=== PATIENT | male | born 1985 | race Caucasian/White ===

== ENCOUNTER 2022-05-11 01:40 | Emergency (ER) | payer OTHER, SELFPAY ==
[2022-05-11 01:43] VITALS: BP 152/101; PULSE 65; RESP 18; TEMP 36.4; O2SAT 99; BMI 35.2
--- NOTE | 2022-05-11 02:11 | EKG12_ITS ---
Test Reason : Blood Pressure : / mmHG Vent. Rate : 065 BPM Atrial Rate : 065 BPM P-R Int : 172 ms QRS Dur : 108 ms QT Int : 410 ms P-R-T Axes : 052 055 048 degrees QTc Int : 426 ms Normal sinus rhythm Normal ECG Confirmed by KELLY WILSON, SAIMA ([id number]), sound editor CHRIS LEVIN ([id number]) on 05/14/2022 2:11:33 PM Referred By: Confirmed By:SAIMA MENDOZA MD
--- NOTE | 2022-05-11 02:12 | CT_ITS ---
INDICATION: abd pain -- IV PO Contrast EXAMINATION: CT ABDOMEN AND PELVIS WITH CONTRAST - CT Abdomen And Pelvis W/ Contrast Injection TECHNIQUE: Helically acquired images were obtained of the abdomen and pelvis following IV contrast. A radiation dose optimization technique was used for this scan. IV Contrast dosage and agent: 100 mL Isovue-370 Oral contrast: Gastrografin oral contrast. COMPARISON: None. FINDINGS: LOWER CHEST: Lung bases are clear. No cardiomegaly or pericardial effusion. LIVER: Homogeneous. No focal mass. GALLBLADDER AND BILIARY TREE: No calcified gallstones. No gallbladder distension or wall edema. No intra- or extrahepatic biliary ductal dilation. PANCREAS: No focal cystic or solid mass. SPLEEN: Normal size without focal cystic or solid mass. ADRENAL GLANDS: No nodules. KIDNEYS AND URETERS: Normal renal size and position. No hydronephrosis. PERITONEUM: No ascites or free air. No other fluid collection. BOWEL: Appendix is not seen. No right lower quadrant inflammation to suggest appendicitis. . No stomach or bowel distension. No focal inflammatory change. LYMPH NODES: No enlarged mesenteric or retroperitoneal lymph nodes. VESSELS: Aorta is non-dilated. URINARY BLADDER: Unremarkable. REPRODUCTIVE ORGANS: No pelvic masses. ABDOMINAL WALL: No discrete abdominal or pelvic wall hernia. BONES: No lytic or blastic abnormality. CT/Abdomen/Pelvis WITH Contrast IMPRESSION: Minimal bladder wall thickening versus pseudothickening from incomplete distention. Correlate with urine to exclude cystitis. No other acute finding. Electronically Signed: Ori Aparicio MD at 4:48 EDT ,
--- NOTE | 2022-05-11 02:13 | EX.ED.DYSGE1 ---
HPI History of Present Illness Chief Complaint: Abd Pain Detail of Chief Complaint: Chest and abdominal pain Informant: patient Onset/Context/Timing Onset: Weeks (1 week) Context: Gradual Onset Timing: Waxes and wanes Current Severity: Moderate Maximum Severity: Moderate Narrative Narrative: Patient presents with 1 week history of waxing and waning chest and upper abdominal pain. He points to the center of his chest as well as in the epigastrium and left upper quadrant. He states he has pain that is sharp and stabbing and worse when he tries to lie down flat. He does note that sometimes worsens after he eats. He does not necessarily feel short of breath. He has not had recent URI symptoms. He was seen by his primary care physician and had a chest x-ray that was reportedly unremarkable. He has tried ibuprofen without improvement. [facility] Medical History Hypertension Home Medications amlodipine 5 mg tablet 5 mg PO DAILY 05/11/22 [History Last Taken Unknown] Allergy/AdvReac Type Severity Reaction Status Date / Time No Known Allergies Allergy Verified 05/11/22 01:42 Surgical History History of tonsillectomy Hx of appendectomy Social History Smoking Status: Never smoker ROS ROS ED Constitutional Constitutional ED: Denies chills or fever(s) Eyes Eyes: Denies change in vision or discharge from eye(s) ENT ENT ED: Denies discharge from eye(s), rhinorrhea or sore throat Cardiovascular Cardiovascular: Reports chest pain; Denies palpitations Respiratory/Chest Respiratory/Chest: Denies cough or dyspnea Gastrointestinal Gastrointestinal: Reports abdominal pain; Denies diarrhea, nausea or vomiting Genitourinary Genitourinary ED: Denies dysuria Musculoskeletal Musculoskeletal: Denies back pain or extremity pain Integumentary Denies Abrasions or rash Neurologic Neurologic: Denies headache(s) or weakness Allergic/Immunologic Allergic/Immunologic ED: Denies lip swelling or urticaria EXAM Physical Exam Const Vital Signs: 05/11/22 01:43 05/11/22 03:51 Temperature 97.5 F L Temperature Source Temporal Pulse Rate 65 76 Respiratory Rate 18 18 Blood Pressure 152/101 H Blood Pressure Mean 118 Pulse Ox 99 Oxygen Delivery Method Room Air Positive well nourished and well developed General Appearance ED: well developed HEENT Reports normocephalic and head/scalp atraumatic Eyes PERRL and EOMs intact bilaterally Neck supple Chest Wall inspection of chest normal and palpation of chest normal Resp normal respiratory effort and clear to auscultation bilaterally Cardio regular rate, regular rhythm and no murmurs GI GI Narrative: Mild epigastric and left upper quadrant tenderness. No guarding or rebound. 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 EKG obtained to evaluate for cardiac arrhythmia/ischemia. Labwork obtained to evaluate for leukocytosis, anemia, and electrolyte derangement. Two-view chest x-ray obtained to evaluate for cardiac silhouette and any acute pulmonary findings. CT scan of the abdomen and pelvis obtained. Lab Data Attestation: I reviewed the patient's lab results. Labs: Laboratory Results - last 24 hr 05/11/22 05/11/22 05/11/22 02:05 02:05 02:05 WBC 9.1 RBC 4.46 L Hgb 14.3 Hct 42.3 MCV 94.8 H MCH 32.1 H MCHC 33.8 RDW Std Deviation 41.3 RDW Coeff of Driss 11.8 Plt Count 248 MPV 9.1 Immature Gran % (Auto) 0.300 Neut % (Auto) 63.0 Lymph % (Auto) 27.2 Hernando % (Auto) 6.0 Eos % (Auto) 2.5 Baso % (Auto) 1.0 Absolute Neuts (auto) 5.7 Absolute Lymphs (auto) 2.48 Nucleated RBC % 0 ESR 9 D-Dimer Quant (PE/DVT) < 0.27 L Sodium 138 Potassium 3.5 Chloride 106 Carbon Dioxide 25.0 Anion Gap 7 BUN 13 Creatinine 1.32 H Estim Creat Clear Calc 82.40 Est GFR (MDRD) Af Amer 79 Est GFR (MDRD) Non-Af 65 BUN/Creatinine Ratio 9.8 L Glucose 118 H Calcium 8.9 Total Bilirubin 0.50 Direct Bilirubin 0.11 AST 18 ALT 39 Alkaline Phosphatase 48 Troponin I High Sens 4 C-React Prot Ext Range 7.95 H Total Protein 7.0 Albumin 3.7 Globulin 3.3 Lipase 202 Radiography Chest X-Ray - ED: 2 View, Read by ED Physician, Normal, Heart, Lungs and Mediastinum Diagnostic Testing: Clinical Impression(s) from Imaging Studies Abdomen/Pelvis CT 05/11/22 02:12 IMPRESSION: Minimal bladder wall thickening versus pseudothickening from incomplete distention. Correlate with urine to exclude cystitis. No other acute finding. Electronically Signed: Ori Aparicio MD at 4:48 EDT , Chest X-Ray 05/11/22 04:00 IMPRESSION: No radiographic evidence of acute cardiopulmonary disease. Electronically Signed: Ori Aparicio MD at 4:16 EDT , EKG Initial EKG: Attestation: I personally reviewed and interpreted this EKG as follows: Interpretation: Sinus Rhythm (Sinus at 65 with no acute ischemia.) Treatment and Re-Evaluation :: CBC reveals normal white count with hemoglobin of 14.3. Chemistry studies reveal a BUN of 13 and creatinine 1.32. I do no prior creatinines available for comparison. LFTs and lipase are unremarkable. Troponin is normal. CRP is elevated at 7.95 but sed rate is normal at 9. D-dimer is less than 0.27. Two-view chest x-ray per my interpretation reveals no acute findings. Radiology interpretation is reviewed and agrees. EKG reveals no ischemia. CT scan of the abdomen pelvis with contrast is obtained and shows some nonspecific bladder wall thickening. Patient has no urinary or lower abdominal symptoms I suspect this is secondary to collapsed bladder. Patient has no evidence of pneumonia or acute cardiac disease. Differential included pericarditis given his symptoms are worse when lying flat. He has no friction rub noted. No evidence of gallbladder disease or pancreatitis. I did recommend patient start antacids as he may have an ulcer. He recently got omeprazole and he was encouraged to take this regularly for the next several weeks. Return instructions given. Discharge Plan Triage Chief Complaint: Abd Pain ED Provider: Adrienne Roman Dx/Rx/DC Orders Clinical Impression: Abdominal pain, Chest pain Instructions: ED Chest Pain, Uncertain Cause, ED Abdominal Pain Unkn Cause Male... Prescriptions: No Action amlodipine 5 mg tablet 5 mg PO DAILY Primary Care Provider: Jaden Sahni Referrals: [facility] Doctor,Out of [Non-Staff] - 1 Week Disposition Disposition: Home, Self Care
[2022-05-11 02:19] LABS: Absolute Lymphocyte Count 2.48 X10^3/uL (0.83-4.51); Absolute Neutrophil Count 5.7 X10^3/uL (2.0-7.7); Basophil# 0.09 X10^3/uL; Eosinophil# 0.23 X10^3/uL; Eosinophils% 2.5 % (0-5); Hematocrit 42.3 % (40-54); Hemoglobin 14.3 g/dL (13.0-16.5); Lymphocyte # 2.48 X10^3/ul (0.83-4.51); Lymphocyte % 27.2 % (19-41); Mean Corp Hgb Conc 33.8 g/dL (32-36); Mean Corpuscular Hgb 32.1 pg (27.0-32.0); Mean Corpuscular Volume 94.8 fL (80-94); Mean Platelet Vol. 9.1 fl (6.2-12.0); Monocyte# 0.55 X10^3/uL; NRBC Flagged by Analyzer 0 % (0-5); Neutrophil # 5.74 X10^3/uL (2.7-7.7); Platelet Count 248 K/mm3 (150-450); RBC Distribution Width CV 11.8 % (11.6-14.6); RBC Distribution Width SD 41.3 fl (35.1-43.9); Red Blood Count 4.46 M/mm3 (4.6-6.2); White Blood Count 9.1 K/mm3 (4.4-11.0)
[2022-05-11 02:24] LABS: Erythrocyte Sedimentation Rate 9 mm/hr (0-20)
[2022-05-11 02:38] LABS: AST(SGOT) 18 U/L (15-37); Alanine Aminotransfer ALT/SGPT 39 U/L (16-61); Albumin, Serum 3.7 g/dL (3.2-5.0); Alkaline Phosphatase 48 U/L (45-117); Anion Gap 7 (5-15); BUN 13 mg/dL (7-18); BUN/Creat Ratio 9.8 RATIO (10-20); Bilirubin, Direct 0.11 mg/dL (0.00-0.30); CRP 7.95 mg/L (0.0-3.0); Calcium,Total 8.9 mg/dL (8.5-10.1); Chloride 106 mmol/L (98-107); Creatinine, Serum 1.32 mg/dL (0.70-1.30); EST Glomerular Filtration Rate 65 mL/min (>60); Est Glom Filt Rate - Afr Amer 79 mL/min (>60); Globulin 3.3 g/dL (2.2-4.2); Glucose 118 mg/dL (74-106); Lipase 202 U/L (73-393); Potassium 3.5 mmol/L (3.5-5.1); Sodium Level 138 mmol/L (136-145); Troponin-I HS 4 pg/mL (3.0-78.0)
[2022-05-11 02:48] LABS: D-Dimer Quantitative (DVT/PE) < 0.27 FEU/ug/m (0.27-0.49)
[2022-05-11 03:51] VITALS: PULSE 76; RESP 18
--- NOTE | 2022-05-11 04:00 | RAD_ITS ---
INDICATION: pain EXAMINATION/TECHNIQUE: X-RAY - XR Chest 2 Views COMPARISON: None. FINDINGS: LINES/DEVICES: None. LUNGS: No consolidation, edema or effusion. No pneumothorax. MEDIASTINUM AND CARDIOVASCULAR STRUCTURES: Cardiac silhouette not enlarged. BONES AND SOFT TISSUES: Unremarkable. RAD/Chest PA and Lateral IMPRESSION: No radiographic evidence of acute cardiopulmonary disease. Electronically Signed: Ori Aparicio MD at 4:16 EDT ,
[2022-05-11 05:11] VITALS: BP 142/80; PULSE 67; RESP 16
== END 2022-05-11 05:11 | disposition home or self-care (01) ==
PROVIDERS: Emergency Provider Emergency Medicine; PCP Internal Medicine Infectious Disease; Visit Provider Emergency Medicine
DX: R10.12 Left upper quadrant pain (principal); R07.9 Chest pain, unspecified
CPT/HCPCS: 71046; 74177; 80048; 80076; 83690; 84484; 85025; 85379; 85652; 86140; 93005; 99283; Q9967

== ENCOUNTER → 2023-04-22 | Outpatient (CLI) | payer OTHER, SELFPAY ==
[2023-04-22 18:55] LABS: Anion Gap 6 (5-15); BUN 13 mg/dL (7-18); BUN/Creat Ratio 9.7 RATIO (10-20); Calcium,Total 9.4 mg/dL (8.5-10.1); Chloride 103 mmol/L (98-107); Cholesterol 216 mg/dL (200); Creatinine, Serum 1.34 mg/dL (0.70-1.30); EST Glomerular Filtration Rate 64 mL/min (>60); Est Glom Filt Rate - Afr Amer 77 mL/min (>60); Glucose 110 mg/dL (74-106); High Density Lipoprotein 42 mg/dL; Potassium 3.7 mmol/L (3.5-5.1); Sodium Level 135 mmol/L (136-145); Triglycerides 438 mg/dL
== END | disposition home or self-care (01) ==
LOC: MFPLAB 15:41
PROVIDERS: PCP Internal Medicine Infectious Disease; Visit Provider Family Medicine
DX: Z00.00 Encounter for general adult medical examination without abnormal findings (principal)
CPT/HCPCS: 36415; 80048; 80061

== ENCOUNTER → 2023-06-27 | Outpatient (CLI) | payer OTHER, SELFPAY ==
[2023-06-27 16:39] LABS: Uric Acid 7.2 mg/dL (3.5-7.2)
== END | disposition home or self-care (01) ==
LOC: MFPLAB 13:49
PROVIDERS: PCP Internal Medicine Infectious Disease; Visit Provider Family Medicine
DX: M79.676 Pain in unspecified toe(s) (principal)
CPT/HCPCS: 36415; 84550